=== PATIENT | male | born 1980 | race Two or more races ===

== ENCOUNTER 2020-02-07 00:18 | Emergency (ER) | payer OTHER ==
[~2020-02-07] VITALS: Ht 175.3 cm; Wt 86.2 kg
[2020-02-07] MEDS ORDERED: TETANUS-DIPTH-ACEL PERTUSSIS 0.5ML SYR Tdap IM ONE (01:30)
[2020-02-07 01:36] VITALS: BP 135/81
== END 2020-02-07 02:16 | disposition home or self-care (01) ==
LOC: ER 00:20
DX: S41.102A Unspecified open wound of left upper arm, initial encounter (principal); S00.03XA Contusion of scalp, initial encounter; W50.3XXA Accidental bite by another person, initial encounter; Y93.89 Activity, other specified; Y92.89 Other specified places as the place of occurrence of the external cause; Y99.8 Other external cause status
CPT/HCPCS: 90471; 90715